=== PATIENT | female | born 1960 | race Caucasian/White ===

== ENCOUNTER → 2024-05-09 | Outpatient (CLI) | payer MEDICARE ==
[2024-05-09 11:30] LABS: African American GFR (CKD) >90 (>60 ml/min/1.73 sqM); Blood Urea Nitrogen 11 mg/dL (7-17); Non-African American GFR(CKD) >90 (>60 ml/min/1.73 sqM)
--- NOTE | 2024-05-09 12:22 | CT ---
EXAMINATION TYPE: CT chest w con CT DLP: 466 mGycm, Automated exposure control for dose reduction was used. DATE OF EXAM: 05/09/2024 11:59 AM COMPARISON: Multiple CT chest with most recent 10/05/2023 CLINICAL INDICATION:Female, 63 years old with history of R91.1 SPN; PHH, Solitary pulmonary nodule TECHNIQUE: Multiple axial images were obtained through the chest following the administration of 100 cc of Isovue 300. . Coronal and sagittal reformats reviewed. FINDINGS: LUNGS/ PLEURA: No pleural effusion, pneumothorax, focal consolidation. Posterior left fat filled Serina dalek hernia. Stable vague groundglass nodularity within the left lung apex measuring up to 1.6 cm ( series 4, image 7). Some atelectasis and/or scarring is identified within the medial segment of the r ight middle lobe. No new or enlarging pulmonary nodules. AIRWAY: Patent and unremarkable.. HEART: Size within normal limits. . MEDIASTINUM: No pathologic adenopathy greater than 1 cm short axis. VASCULATURE: No aortic aneurysm. MUSCULOSKELETAL: No acute osseous abnormalities. Degenerative changes of the thoracic spine. Prominen t spurring is noted involving the superior endplate of the L3 vertebral body. SOFT TISSUES/LYMPH NODES: Few bilateral mildly prominent axillary lymph nodes measuring less than 1 c m short axis. LOWER NECK: No significant findings. UPPER ABDOMEN: Stable left renal cyst measuring up to 4.4 cm. IMPRESSION: Stable groundglass nodular opacity within the anterior left apex. Slow growing neoplasm is not exclud ed. No new or enlarging pulmonary nodules. Follow-up CT chest in one year is recommended.
== END | disposition home or self-care (01) ==
LOC: RADCTMAIN 10:58 → MERGE 12:15
PROVIDERS: ATTEND Internal Medicine Critical Care Medicine
DX: R91.1 Solitary pulmonary nodule (principal)
CPT/HCPCS: 82565; 84520; 71260; 36415; Q9967

== ENCOUNTER → 2025-05-22 | Outpatient (CLI) | payer MEDICARE ==
[2025-05-22 11:18] LABS: African American GFR (CKD) >90 (>60 ml/min/1.73 sqM); Blood Urea Nitrogen 10 mg/dL (7-17); Non-African American GFR(CKD) 79 (>60 ml/min/1.73 sqM)
--- NOTE | 2025-05-28 22:45 | CT ---
EXAMINATION TYPE: CT chest w con DATE OF EXAM: 05/22/2025 11:42 AM COMPARISON: 05/09/2024 CLINICAL INDICATION: Female, 64 years old with history of R91.1 LUNG NODULE; PHH, F/U NODULE TECHNIQUE: Multiple axial images were obtained through the chest IV contrast. Coronal and sagittal re constructions performed. Contrast used:100ml mL of Isovue [address] DLP: 239.7 mGycm, Automated exposure control for dose reduction was used. FINDINGS: The heart is normal size without pericardial effusion. RCA coronary calcifications are present. Aorta normal caliber with scattered mild atherosclerotic calcifications in the medullary vessel branc tomer anatomy. Numerous scattered nonenlarged borderline sized mediastinal lymph nodes are redemonstrated. Some may be larger suggesting lower right paratracheal measuring 1.0 cm now versus 7 mm, previously. Right hil ar lymph node measures 1.1 cm now. Bilateral axillary lymphadenopathy which has developed in the interval measuring up to 1.3 cm on the right and 1.5 cm on the left. Some strandy atelectasis/scarring in the lower lungs. Moderate emphysematous changes. Focal subpleural groundglass anterior left upper lobe currently measuring 2.3 cm versus 1.6 cm previo usly. No soft tissue component is seen. No other suspicious pulmonary nodules. Visualized upper abdomen shows diffuse low-attenuation of the hepatic parenchyma. There is a small fa tty Bochdalek hernia on the left. Underlying renal cysts measuring up to 4.2 cm in length. Partially visualized fatty cortical lesion of the left kidney measuring up to 2.4 cm suggesting AML. Bones: Anterior spondylosis mid to lower thoracic spine. Superior endplate Schmorl's node and L3. IMPRESSION: 1. Groundglass opacity anterior left upper lobe has enlarged currently 2.3 cm versus 1.6 cm, previous ly. No soft tissue component at this time. Ongoing follow-up recommended to exclude an indolent neopl asm. 2. However, there is new borderline axillary adenopathy measuring up to 1.5 cm. A few mediastinal and hilar lymph nodes have also enlarged measuring up to 1.1 cm. Findings may be reactive/post inflammat ory. Close surveillance follow-up such as in 3 months to exclude more worrisome etiologies such as ea rly lymphoma. 3. 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 [facility], , 05/28/2025 10:43 PM
== END | disposition home or self-care (01) ==
LOC: RADCTMAIN 10:17
PROVIDERS: ATTEND Internal Medicine Critical Care Medicine
DX: R91.1 Solitary pulmonary nodule (principal); R59.0 Localized enlarged lymph nodes
CPT/HCPCS: 82565; 84520; 71260; 36415; Q9967